=== PATIENT | female | born 1930 | race Caucasian/White ===

== ENCOUNTER 2016-11-14 14:50 | Inpatient (IN) ==
[2016-11-14] MEDS ORDERED: ZOFRAN IV ONE (15:42)
[2016-11-14] MEDS ORDERED: DILAUDID IV ONE (15:42)
[2016-11-14] MEDS ORDERED: NS 1,000 ML IV ONE (15:43)
--- NOTE | 2016-11-14 16:43 | Diag Imaging Result Doc PS360 ---
CHEST-1 VIEW - 11/14/2016 INDICATION: fx hip TECHNIQUE: COMPARISON: 02/23/2016 FINDINGS: There is borderline cardiomegaly and mild pulmonary vascular congestion. No focal infiltrates, pneumothorax, or pleural effusion. IMPRESSION: Nonspecific findings. Electronically signed by Darien Dumont 11/14/2016 4:41 PM
--- NOTE | 2016-11-14 16:50 | Diag Imaging Result Doc PS360 ---
HIP W/PELVIS BILAT 2 VIEWS - 11/14/2016 INDICATION: fall, right hip pain TECHNIQUE: Five views COMPARISON: CT from 08/01/2016 FINDINGS: There is a mildly displaced intertrochanteric fracture of the right proximal femur. No dislocation. The left hip appears intact. IMPRESSION: Intertrochanteric right proximal femur fracture. Electronically signed by Darien Dumont 11/14/2016 4:48 PM
[2016-11-14 17:13] LABS: MANUAL DIFF NEEDED? NO
[2016-11-14 17:24] LABS: BASO% 0.5 % (0.0-0.8); EOS# 0.32 X1000 (0.0-0.7); EOS% 3.3 % (0.0-10.0); HEMATOCRIT 35.1 % (37.0-47.0); HEMOGLOBIN 11.5 g/dL (12.0-16.0); IMM GRAN# 0.09 X1000 (0.0-0.04); IMM GRAN% 0.9 % (0.0-0.5); LYMPH# 1.78 X1000 (1.2-3.4); LYMPH% 18.3 % (20.5-51.1); MCH 29.3 PG (27-31); MCHC 32.8 g/dL (33-37); MCV 89.3 FL (81-99); MONO# 0.71 X1000 (0.11-0.59); MONO% 7.3 % (1.7-9.3); MPV 11.4 FL (7.4-10.4); NEUT% 69.7 % (42.2-75.2); PLT 222 X1000 (130-400); RBC 3.93 XMIL (4.2-5.4)
--- NOTE | 2016-11-14 17:25 | PROVIDER DOCUMENTATION ---
This chart was entered by Ari Hi Scribe, acting as scribe for Grupo Whitney MD. 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 Patient was unable to ambulate. Patient reports right pain, denies any other injury. Quality of Pain: reports: dull Severity in ED: moderate Onset/Duration: abrupt, just prior to arrival Timing: still present, intermittent Modifying Factors: worse with: movement Locality of Occurance: Home Similar Symptoms Previously?: No - FALL INJURY Location of Pain/Injury: reports: lower extremity (right hip) Pain Radiation: reports: no radiation Reason for Fall: reports: slipped, tripped Symptoms prior to fall:: reports: none Loss of Consciousness: no loss of consciousness Injury Associated Symptoms: reports: snap/crack/pop sensation, unable to bear weight, trouble walking. denies: back/neck pain, shortness of breath Review of Systems - Adult - REVIEW OF SYSTEMS - ADULT Constitutional: reports: no symptoms reported Eyes: reports: no symptoms reported Ears, Nose, Mouth & Throat: reports: no symptoms reported Cardiovascular: denies: chest pain, palpitations Respiratory: denies: dyspnea on exertion, shortness of breath Gastrointestinal: reports: no symptoms reported Genitourinary: reports: no symptoms reported Musculoskeletal: reports: joint pain. denies: back pain, neck pain Integumentary: reports: no symptoms reported Neurological: denies: dizziness/vertigo, headache/migraines, syncope Psychiatric: reports: no symptoms reported Endocrine: reports: no symptoms reported Hematologic/Lymphatic: reports: no symptoms reported Allergic/Immunologic: reports: no symptoms reported All Other Systems: Reviewed and Negative Past History - Adult - PAST MEDICAL HISTORY-ADULT Review of Records: reports: Old Records Reviewed, Nursing Assessment Review, Medications Reviewed Major Childhood Illnesses: reports: denies history Cardiovascular: reports: HTN, PVD (total SFA occlusion 10/22/13) Respiratory: reports: asthma, COPD Gastrointestinal: reports: other (perforated bowel) Endocrine/Immune: reports: thyroid disorder (hypothyroid) - PRIOR SURGERIES/PROCEDURES Surgical/Procedure History: reports: hysterectomy, hernia repair, bowel surgery , other, appendectomy, cholecystectomy, back/neck - IMMUNIZATION STATUS Childhood Immunizations: See Nurse Assessment Flu Vaccine: UTD - FAMILY HISTORY Family History: reviewed, not pertinent - SOCIAL HISTORY Smoking: quit greater than 1 year, cigarettes Living Situation: family Physical Exam-Injury Related - Physical Exam-Injury Related Initial Vital Signs Reviewed: Yes General Appearance: alert, mild distress, moderate distress Eyes: PERRL/EOMI, pink conjunctivae Head, Ears, Nose, Mouth & Throat: normocephalic/atraumatic, moist mucous membranes, normal ENT inspection Neck: full range of motion, normal inspection Respiratory: chest non-tender, lungs clear, normal breath sounds, no respiratory distress, no accessory muscle use Cardiovascular: regular rate, rhythm, no edema, no JVD Abdominal Exam: normal bowel sounds, non tender, soft, no organomegaly, no pulsatile mass Back Exam: no CVA tenderness, no vertebral tenderness Extremity: normal capillary refill, tenderness (right hip), other (right leg is shortened and externally rotated) Integumentary: normal color, warm/dry Neurologic: vice president research II-XII nml as tested, no motor/sensory deficits Psych/Mental Status: normal mood/affect, normal thought content, normal thought process, oriented x 3 - Glascow Coma Score Best Eye Response (Bharath): (4) open spontaneously Best Verbal Response ([place]): (5) oriented Best Motor Response ([place]): (6) obeys commands [place] Total: 15 Progress - PLAN OF CARE/RESULTS Progress/Plan/Lab Results: Vital Signs - 8 hr 11/14/16 15:22 Temperature 98.5 F Pulse Rate 72 Respiratory Rate 18 Blood Pressure 107/48 O2 Sat by Pulse Oximetry 96 Laboratory Results - last 24 hr 11/14/16 15:55 WBC 9.71 RBC 3.93 L Hgb 11.5 L Hct 35.1 L MCV 89.3 MCH 29.3 MCHC 32.8 L RDW Std Deviation 15.1 H Plt Count 222 MPV 11.4 H Immature Gran % (Auto) 0.9 H Neut % (Auto) 69.7 Lymph % (Auto) 18.3 L [place] % (Auto) 7.3 Eos % (Auto) 3.3 Baso % (Auto) 0.5 Immature Gran # (Auto) 0.09 H Neut # (Auto) 6.76 H Lymph # (Auto) 1.78 [place] # (Auto) 0.71 H Eos # (Auto) 0.32 Baso # (Auto) 0.05 Orders Category Date Time Status CHEST-1 VIEW [RAD] Stat Exams 11/14/16 16:23 Completed HIP W/PELVIS BILAT 2 VIEWS [RAD] Stat Exams 11/14/16 15:36 Completed CBC WITH ELECTRONIC DIFF [HEME] Stat Lab 11/14/16 15:55 Completed COMPREHENSIVE METABOLIC PANEL [CHEM] Stat Lab 11/14/16 15:55 Received PROTIME WITH INR [COAG] Stat Lab 11/14/16 15:55 Received PTT [COAG] Stat Lab 11/14/16 15:55 Received URINALYSIS-1 [URINALYSIS] Stat Lab 11/14/16 17:06 Uncollected 0.9% Sodium Chloride Inj [Ns] 1,000 ml Med 11/14/16 15:43 Discontinued IV 999 mls/hr Hydromorphone [Dilaudid] Med 11/14/16 15:42 Discontinued 2 mg IV NOW ONE Ondansetron [Zofran] Med 11/14/16 15:42 Discontinued 4 mg IV NOW ONE Transfer/Admit Order [TRANSFER] Routine Transfer 11/14/16 17:21 Ordered Result Diagrams: 11/14/16 15:55 - XRAY 1 XRAY: Right XRAY Study: Pelvis, Hip Impression: Abnormal XRAY Interpretation: intertrochanteric R proximal femur fracture - CONSULTS/PCP/HOSPITALIST Notification #1 *Consult/PCP/Hospitalist*: Time Discussed: 17:12 Reason/Comments: hip fx, will consult on patient upstairs #2 Consult: Time Discussed: 17:20 Reason/Comments: will placed in bridge orders Consult Disposition: Admit Departure - Departure Date of Disposition Decision: 11/14/16 Time of Disposition Decision: 17:20 DIAGNOSIS: Intertrochanteric fracture of right femur, Fall from standing Disposition: ADMITTED INPATIENT 09 Certified Medical Emergency: Emergent Condition: Stable Referrals and Follow-Ups: None,PCP [Primary Care Provider] - - Critical Care Note This patient required my direct & personal management of CC.: No Attestation - Physician/ ANALILIA Attestation The physician spent face to face time with patient:: Yes Advanced Practice Provider documentation review:: Supervising physician onsite and consulted in the evaluation and care of this patient. The physician did have a face to face encounter with the patient. This chart was documented by the indicated scribe, (Ari Hi, Scribe) and accurately reflects the services I performed and decisions made by me, Grupo Whitney MD, as attested by the provider's signature.
[2016-11-14 17:30] LABS: INR 0.98; PROTIME 10.3 Seconds (9.2-11.7); PTT 29.1 Seconds (22.0-36.0)
[2016-11-14 17:36] LABS: ALBUMIN 3.5 g/dL (3.5-5.0); CALCIUM 9.4 mg/dL (8.8-10.2); POTASSIUM 5.5 mmol/L (3.5-5.1); TOTAL BILIRUBIN 0.2 mg/dL (0.20-1.00); TOTAL PROTEIN 7.1 g/dL (6.3-8.3)
[2016-11-14 17:59] LABS: URINE MICRO REVIEW NEEDED? NO; URINE SOURCE CATH
[2016-11-14 18:14] LABS: BILIRUBIN URINE NEGATIVE (NEGATIVE); BLOOD URINE SMALL (NEGATIVE); COLOR STRAW; GLUCOSE URINE NEGATIVE (NEGATIVE); LEUKOCYTES URINE NEGATIVE (NEGATIVE); NITRITE URINE NEGATIVE (NEGATIVE); PROTEIN URINE TRACE mg/dL (NEGATIVE); SP GRAVITY URINE 1.006; TURBIDITY URINE CLEAR (CLEAR); UROBILINOGEN URINE NORMAL (NORMAL)
[2016-11-14 18:16] LABS: UR EPITHELIAL CELLS <10 /HPF (<10); URINE BACTERIA NEGATIVE /HPF; URINE RBC <10 /HPF (<10); URINE WBC <10 /HPF (<10)
[2016-11-14] MEDS ORDERED: DILAUDID IM PRN (18:23)
[2016-11-14] MEDS ORDERED: SODIUM CHLORIDE 0.9% INJ SCH (19:30)
[2016-11-14] MEDS: DUONEB (A & A) INH SCH ×2 (19:45→23:10)
[2016-11-14] MEDS ORDERED: SYNTHROID PO SCH (21:00)
[2016-11-14] MEDS: LOVENOX SUBQ SCH (21:52)
[2016-11-14] MEDS: XANAX PO SCH (21:52)
[2016-11-14] MEDS: NEURONTIN PO SCH (21:52)
[2016-11-14] MEDS: COLACE PO SCH (21:52)
[2016-11-14] MEDS: LOPRESSOR PO SCH (21:52)
[2016-11-14] MEDS: PROTONIX IV SCH (21:53)
[2016-11-14] MEDS ORDERED: ZOFRAN IV PRN (22:07)
[2016-11-14] MEDS ORDERED: NS 1,000 ML IV SCH (22:15)
--- NOTE | 2016-11-14 22:24 | HISTORY AND PHYSICAL ---
CHIEF COMPLAINT: History of fall, sustained to the right hip. HISTORY OF PRESENT ILLNESS: She is an 86-year-old white female patient of mine under hospice care with [facility], had a fall, sustained injury to the right hip. Right hip slightly shortened, not externally rotated. X-rays reviewed, right intertrochanteric fracture without significant displacement. May be some anterior displacement noted. Patient was admitted to the hospital with a right hip fracture. Dr. Foley has been consulted. She was also found to have mild azotemia, started on IV fluids. As a result, a hospital admission was warranted. PAST MEDICAL HISTORY: Intermittent atrial fibrillation. COPD. Chronic systolic heart failure with EF 30%. Depression. Type 2 diabetes. Hypertension. Hypothyroidism. Acid reflux disease. Peripheral vascular disease. Incisional hernia. PAST SURGICAL HISTORY: Hemorrhoidectomy. Cholecystectomy. Partial hysterectomy. Intracardiac stents. Right SFA atherectomy with angioplasty. Back surgery. Exploratory laparotomy for bowel obstruction with lysis of adhesion. Repair of bladder. Resection of partial small bowel. ALLERGIES: Reported to penicillin. Tetanus toxoid. SOCIAL HISTORY: . 6 children. Retired. Lives in [place]. Quit smoking in 2012. FAMILY HISTORY: Father of [place] at 63. Mom at 52 from cancer and diabetic complications. MEDICATIONS: Prilosec 20 daily. Losartan 50 daily. Aldactone 25 daily. Tramadol 100 at bedtime. Potassium 20 mg daily. Zanaflex 4 mg at bedtime. Eliquis 5 mg daily. Pletal 50 daily. Glipizide 5 mg p.o. b.i.d. Synthroid 50 mcg daily. Januvia 100 daily. Lipitor 40 daily. Lanoxin 125 mcg daily. Zofran 4 mg as needed. Metoprolol 25 daily. Pletal 100 daily. ALLERGIES: Penicillin. REVIEW OF SYSTEMS: HEENT: No headache. No vision problem. No earache. No sore throat. Neck: No goiter. No lymphadenopathy. No bruit. Cardiopulmonary: No chest pain, shortness of breath, PND, orthopnea. GI: Incisional hernia. No nausea, vomiting. : No history of hesitancy, frequency. Suh was placed. Musculoskeletal: Pain in the right hip. Neurologic: No focal symptoms or weakness. PHYSICAL EXAMINATION: VITAL SIGNS: Afebrile. 5 feet 2, 135 pounds. Vitals are stable. Input and output are negative, - 600. HEENT: Atraumatic, normocephalic. Pupils equal, react to light. Tympanic membranes are normal. Nose and throat within normal limits. NECK: Supple. No lymphadenopathy. No goiter. CHEST: Bilateral air entry. No rales, no wheezing. HEART: Sounds are regular. ABDOMEN: Belly is soft. Protuberant. Incisional hernia. Bowel sounds are present. MUSCULOSKELETAL: A lot of swelling in the right hip, shortened. NEUROLOGIC: No obvious neurological deficits. INVESTIGATIONS: CBC: White cell count 9.7, hematocrit 35, platelets 222,000. PT 10, INR 0.8. SMA7: Potassium 5.5, BUN 52, creatinine 2.2. Urinalysis is clear. X-ray of the right hip: Right intertrochanteric fracture with anterior displacement. Chest x-ray: Borderline cardiomegaly. Stable. ASSESSMENT AND PLAN: 1. An 86-year-old white female with above problems admitted to the hospital with right hip fracture. Plan is Orthopedics consult, pain control with Dilaudid. 2. Deep venous thrombosis and gastrointestinal prophylaxis with Lovenox and Protonix respectively. 3. Azotemia. IV fluids, half-normal saline, 80 mL/hour. Dr. Foley consult. Check the labs in the morning. Reconcile home medications. Discussed with the family and will follow up. cc: Nayan Jeffries MD
[2016-11-14] MEDS ORDERED: DILAUDID IV PRN (22:27)
[2016-11-14] MEDS: NARCAN ONE ×2 (23:30→23:33)
[2016-11-15] MEDS: ZOFRAN IV PRN ×4 (00:50→21:53)
[2016-11-15] MEDS: HUMALOG SUBQ SCH ×5 (02:42→21:42)
[2016-11-15 02:45] LABS: ALLEN TEST YES; BE -4.5 mmoll (-3.0-3.0); BLOOD TYPE ARTERIAL; DRAW SITE R RADIAL; METHB 0.9 % (0.0-1.5); O2(CT) 15.3 mL/dL (15.0-23.0); PCO2(98.6) 49 mmHg (35-45); PO2(98.6) 89 mmHg (60-100); SAMPLE BLOOD; SAO2 98.3 % (95.0-100.0); THB 11.3 g/dL (11.5-17.4); pH(98.6) 7.27 (7.35-7.45)
[2016-11-15 02:47] LABS: MODALITY NRB
[2016-11-15] MEDS: DUONEB (A & A) INH SCH ×6 (02:50→23:30)
[2016-11-15] MEDS: DILAUDID IV PRN ×4 (05:10→21:57)
[2016-11-15] MEDS: SYNTHROID PO SCH (06:16)
[2016-11-15 07:43] LABS: MANUAL DIFF NEEDED? NO
[2016-11-15 07:55] LABS: BASO% 0.1 % (0.0-0.8); EOS# 0.01 X1000 (0.0-0.7); EOS% 0.1 % (0.0-10.0); HEMATOCRIT 35.2 % (37.0-47.0); HEMOGLOBIN 11.3 g/dL (12.0-16.0); IMM GRAN# 0.04 X1000 (0.0-0.04); IMM GRAN% 0.3 % (0.0-0.5); LYMPH# 1.44 X1000 (1.2-3.4); MCH 28.9 PG (27-31); MCHC 32.1 g/dL (33-37); MONO# 1.32 X1000 (0.11-0.59); MONO% 8.3 % (1.7-9.3); MPV 10.8 FL (7.4-10.4); NEUT% 82.2 % (42.2-75.2); PLT 226 X1000 (130-400); RBC 3.91 XMIL (4.2-5.4)
[2016-11-15 08:29] LABS: ALBUMIN 3.5 g/dL (3.5-5.0); CALCIUM 9.2 mg/dL (8.8-10.2); TOTAL BILIRUBIN 0.28 mg/dL (0.20-1.00); TOTAL PROTEIN 6.9 g/dL (6.3-8.3)
--- NOTE | 2016-11-15 08:38 | CONSULTATION ---
DATE OF CONSULTATION: 11/15/2016 CHIEF COMPLAINT: Right hip pain. HISTORY OF PRESENT ILLNESS: Mr. Lambert is an 86-year-old female who presented to the emergency department yesterday for evaluation after a fall. She fell in her shower. Was taken to the ER and was found to have a hip fracture. She was admitted per Dr. Jeffries. Most of her pain is in the right hip. It is worse if she moves it. It does feel better when she lies still. Unfortunately, last night, they had given her some Dilaudid and she has some breathing complications. They had to Narcan her and call a cat call on her. She is on a nonrebreather. Her saturations have been in the 80s and 90s on a nonrebreather. PAST MEDICAL HISTORY: Atrial fibrillation, COPD, heart failure, type 2 diabetes, hypertension, hypothyroidism, reflux, peripheral vascular disease. PAST SURGICAL HISTORY: Cholecystectomy, partial hysterectomy, cardiac stenting. She has had an exploratory laparotomy for a bowel obstruction with a partial resection of the small bowel. ALLERGIES: Penicillin and tetanus. SOCIAL HISTORY: She is a . She has 6 children. She lives in [place]. She has been living by herself and she mainly uses a cane when she walks. MEDICATIONS: Per the medical record. REVIEW OF SYSTEMS: Positive for this right hip pain. All other systems are essentially negative and per the HPI. PHYSICAL EXAMINATION: General: She has a little bit labored breathing and a little bit of distress on a nonrebreather but she is alert, and she answers questions and follows commands. Head and Neck: I do not see any signs of trauma. Respirations are a little bit labored with a nonrebreather on. Cardiovascular: She has a regular rate, femoral pulse. Abdomen: She has a hernia present but is nontender. Extremity Examination: Right lower extremity, she has tenderness to palpation at the right hip and no tenderness to palpation at the knee or ankle. She has good sensation to light touch to the foot and 2+ DP pulse. RADIOGRAPHS: Radiograph of the right hip shows an intertrochanteric fracture with some displacement. ASSESSMENT: Right hip intertrochanteric fracture. PLAN: I discussed with Ms. Lambert and her family today about surgical intervention which is what I would recommend. If anesthesia is okay with doing it today, if we can get by with a spinal, then we will plan on intertrochanteric femoral nail for this right hip fracture today. I went over with her and her family the procedure, risks, benefits, and potential complications of the procedure. Risks include, but are not limited to, infection, wound healing problems, damage to nerves, arteries, veins, numbness, malunion, nonunion, hardware related issues, continued pain, DVT, and anesthesia related risks. After discussing these with the patient and the family, they all expressed understanding and wished to proceed so we will plan on getting this done today. She will be NPO. cc: MD Nayan Leal MD
--- NOTE | 2016-11-15 08:43 | PROGRESS NOTE ---
DATE: 11/15/2016 SUBJECTIVE: The patient had CAT team call last night. Oxygen level went down on the non- rebreather. Family was there at bedside. The patient was seen by Dr. Foley. REVIEW OF SYSTEMS: None reported. PHYSICAL EXAMINATION: Vital Signs: Low-grade fever. Vitals are stable. HEENT : Within normal limits. Neck: Supple. No lymphadenopathy. Chest: Clear to auscultation. Heart: Heart sounds are regular. Abdomen: Belly is soft, nontender. Good bowel sounds. Extremities: Right leg is slightly shortened. Neurologic: No obvious neurological deficits. INVESTIGATIONS: CBC: White cell count 15, hematocrit 35, platelets 226,000. ABG: PH is 7.27, pCO2 of 49, PO2 of 89. SMA-7 is pending. ASSESSMENT AND PLAN: 1. Right hip fracture. Waiting for nailing. 2. Hypoxemia due to oversedation. Will cut down the oxygen. 3. Paroxysmal atrial fibrillation, stable. The patient will be moderate risk for complications. 4. Azotemia, on intravenous fluids. In light of high risk for infection, will start on Levaquin. Discussed the plan of care with the family. LEVEL OF DOCUMENTATION: 25 minutes. cc: Nayan Jeffries MD MTDD
[2016-11-15] MEDS ORDERED: KAYEXALATE PO ONE ×2 (08:57→16:00)
[2016-11-15] MEDS ORDERED: CALCIUM GLUCONATE 1 GM in NS 50 ML IV ONE (08:57)
[2016-11-15] MEDS: NS 1,000 ML IV SCH ×2 (09:03→16:30)
[2016-11-15] MEDS ORDERED: KAYEXALATE PR ONE (11:15)
[2016-11-15] MEDS: LEVAQUIN 250 MG/D5W 250 MG/50 ML IVPB IV SCH (11:24)
[2016-11-15 14:44] LABS: POTASSIUM 6.4 mmol/L (3.5-5.1)
[2016-11-15] MEDS: COLACE PO SCH ×2 (16:52→21:44)
[2016-11-15] MEDS: NEURONTIN PO SCH ×2 (16:53→21:42)
[2016-11-15] MEDS: XANAX PO SCH ×2 (16:53→21:53)
[2016-11-15] MEDS: MIRALAX PO SCH (16:54)
[2016-11-15] MEDS: LANOXIN PO SCH (16:54)
[2016-11-15] MEDS: LOPRESSOR PO SCH ×2 (16:54→21:44)
[2016-11-15 18:25] LABS: CALCIUM 8.7 mg/dL (8.8-10.2); POTASSIUM 5.7 mmol/L (3.5-5.1)
[2016-11-15] MEDS: LOVENOX SUBQ SCH (18:57)
[2016-11-15] MEDS: PROTONIX IV SCH (21:42)
[2016-11-15] MEDS: LIPITOR PO SCH (21:42)
[2016-11-16] MEDS: TYLENOL PR PRN (00:02)
[2016-11-16] MEDS: NS 1,000 ML IV SCH ×4 (00:09→23:41)
[2016-11-16] MEDS: DUONEB (A & A) INH SCH ×7 (03:00→23:32)
[2016-11-16] MEDS: ZOFRAN IV PRN (03:59)
[2016-11-16] MEDS: DILAUDID IV PRN ×6 (03:59→23:38)
[2016-11-16] MEDS: HUMALOG SUBQ SCH ×4 (06:15→22:20)
[2016-11-16] MEDS: SYNTHROID PO SCH (06:16)
[2016-11-16 07:02] LABS: BASO% 0.2 % (0.0-0.8); EOS# 0.22 X1000 (0.0-0.7); EOS% 1.6 % (0.0-10.0); HEMATOCRIT 32.8 % (37.0-47.0); HEMOGLOBIN 10.2 g/dL (12.0-16.0); IMM GRAN# 0.05 X1000 (0.0-0.04); IMM GRAN% 0.4 % (0.0-0.5); LYMPH# 0.98 X1000 (1.2-3.4); LYMPH% 7.1 % (20.5-51.1); MANUAL DIFF NEEDED? YES; MCH 28.4 PG (27-31); MCHC 31.1 g/dL (33-37); MCV 91.4 FL (81-99); MONO# 1.06 X1000 (0.11-0.59); MONO% 7.7 % (1.7-9.3); PLT 186 X1000 (130-400); RBC 3.59 XMIL (4.2-5.4)
[2016-11-16 07:20] LABS: CALCIUM 8.2 mg/dL (8.8-10.2); POTASSIUM 5.3 mmol/L (3.5-5.1)
[2016-11-16 07:38] LABS: BANDS 4 % (0-1); LYMPHS 14 % (21-51); MONO 8 % (1-9)
--- NOTE | 2016-11-16 08:21 | PROGRESS NOTE ---
DATE: 11/16/2016 SUBJECTIVE: Ms. Lambert is lying in bed this morning. She is just on nasal cannula this morning, and feeling okay. OBJECTIVE: Right lower extremity exam: strapping machine tender to palpation around the hip. She can still move the toes well. She has good sensation to light touch to the toes and 2+ DP pulse. ASSESSMENT: Right intertrochanteric hip fracture. PLAN: I discussed with Dr. Jeffries this morning about her case, and he would like to wait another day before we proceed with surgical intervention for her secondary to her creatinine still being high, and her BUN as well. Her potassium has come down quite nicely, from 7 down to 5.3 this morning, so we will let her have regular diet today, and she will be n.p.o. after midnight tonight just in case we can get everything done tomorrow. cc: MD Nayan Leal MD
--- NOTE | 2016-11-16 08:57 | Diag Imaging Result Doc PS360 ---
EXAM: CHEST-1 VIEW INDICATION: SOB TECHNIQUE: One view COMPARISON: 11/14/2016 FINDINGS: There is increased opacity at the left lower lung zone suggesting possible mild developing infiltrate. Consider follow-up with a PA and lateral radiograph of the chest. There is no discrete pleural fluid collection or pneumothorax. The cardiomediastinal silhouette and central vasculature are grossly unremarkable. IMPRESSION: Increasing density in the left lower lung as described. Electronically signed by Gómez Nash 11/16/2016 8:55 AM
--- NOTE | 2016-11-16 09:03 | PROGRESS NOTE ---
DATE: 11/16/2016 SUBJECTIVE: Interval history since yesterday: Right hip surgery was canceled due to unstable medical problems. Potassium came back 7.0, worsening of the renal failure. The patient is also nauseated. For the last 24 hours, the patient was given IV calcium gluconate followed by Kayexalate by mouth as well as anemia. She was given Zofran for nausea. She is also requiring high oxygen. REVIEW OF SYSTEMS: Right hip pain. No shortness of breath. No GI symptoms. The patient has a catheter present. OBJECTIVE: Vital Signs: On examination fever 100.2, tachycardic. Blood pressure is 108/49 6 L nasal cannula 92%. I's and O's are positive 1.78 L. HEENT: Exam within normal limits. Chest: Bilateral air entry. Heart: Sounds are very tachycardic. Abdomen: Belly is soft. Ventral hernia present. Suh catheter was seen. Extremities: Right hip was externally rotated, shortened. INVESTIGATIONS: CBC: White cell count 13, hematocrit 32, platelet 186. SMA 7: Sodium 139, potassium 5.3, chloride 105, BUN 60, creatinine 3.4, glucose 119.9. Chest x-ray stable. ASSESSMENT AND PLAN: 1. Hyperkalemia due to worsening of kidney function tests. Calcium gluconate followed by Kayexalate is improving. 2. Acute kidney injury with worsening, probably intravascular volume depletion. Increase intravenous fluids 135 an hour and follow up on SMA 7. 3. Right hip fracture. Will stabilize before the nailing. 4. Fever and elevated white cell count. Intravenous antibiotics with Levaquin 250 mg once daily. 5. Deep venous thrombosis prophylaxis with Lovenox. 6. Paroxysmal atrial fibrillation on digoxin. 7. Living Will discussed with family. Made her do not resuscitate. Hopefully she will be stabilized by tomorrow. Discussed plan of care with the family along with orthopedic surgeon, Dr. Foley. LEVEL OF DOCUMENTATION: 35 minutes. cc: Nayan Jeffries MD
[2016-11-16] MEDS: LEVAQUIN 250 MG/D5W 250 MG/50 ML IVPB IV SCH (12:24)
[2016-11-16] MEDS: COLACE PO SCH ×2 (14:17→22:19)
[2016-11-16] MEDS: LOPRESSOR PO SCH ×2 (14:19→22:20)
[2016-11-16] MEDS: LANOXIN PO SCH (14:19)
[2016-11-16] MEDS: MIRALAX PO SCH (14:19)
[2016-11-16] MEDS: NEURONTIN PO SCH ×2 (14:19→22:09)
[2016-11-16] MEDS: XANAX PO SCH ×2 (14:20→22:09)
[2016-11-16] MEDS: LOVENOX SUBQ SCH (22:19)
[2016-11-16] MEDS: PROTONIX IV SCH (22:20)
[2016-11-16] MEDS: LIPITOR PO SCH (22:20)
[2016-11-17] MEDS: DILAUDID IV PRN ×4 (02:45→18:44)
[2016-11-17] MEDS: DUONEB (A & A) INH SCH ×2 (03:40→08:35)
[2016-11-17 04:16] LABS: ALLEN TEST YES; BE -4.6 mmoll (-3.0-3.0); BLOOD TYPE ARTERIAL; DRAW SITE R RADIAL; METHB 0.8 % (0.0-1.5); MODALITY VENTIMASK; O2(CT) 12.3 mL/dL (15.0-23.0); PCO2(98.6) 36 mmHg (35-45); PO2(98.6) 82 mmHg (60-100); SAMPLE BLOOD; SAO2 96.9 % (95.0-100.0); THB 9.1 g/dL (11.5-17.4); pH(98.6) 7.36 (7.35-7.45)
[2016-11-17] MEDS: HUMALOG SUBQ SCH ×3 (06:38→18:12)
[2016-11-17] MEDS: SYNTHROID PO SCH (06:39)
[2016-11-17 06:48] LABS: MANUAL DIFF NEEDED? NO
[2016-11-17 06:59] LABS: BASO% 0.3 % (0.0-0.8); EOS# 0.08 X1000 (0.0-0.7); EOS% 0.5 % (0.0-10.0); HEMATOCRIT 28.9 % (37.0-47.0); HEMOGLOBIN 8.9 g/dL (12.0-16.0); IMM GRAN# 0.05 X1000 (0.0-0.04); IMM GRAN% 0.3 % (0.0-0.5); LYMPH# 1.37 X1000 (1.2-3.4); LYMPH% 9.3 % (20.5-51.1); MCH 28.5 PG (27-31); MCHC 30.8 g/dL (33-37); MCV 92.6 FL (81-99); MONO# 1.23 X1000 (0.11-0.59); MONO% 8.4 % (1.7-9.3); MPV 10.5 FL (7.4-10.4); NEUT% 81.2 % (42.2-75.2); PLT 176 X1000 (130-400); RBC 3.12 XMIL (4.2-5.4)
[2016-11-17 07:17] LABS: CALCIUM 8.5 mg/dL (8.8-10.2); POTASSIUM 4.8 mmol/L (3.5-5.1)
[2016-11-17] MEDS: LEVAQUIN 250 MG/D5W 250 MG/50 ML IVPB IV SCH (07:54)
[2016-11-17] MEDS ORDERED: LASIX IV ONE (08:07)
--- NOTE | 2016-11-17 08:14 | PROGRESS NOTE ---
DATE: 11/17/2016 SUBJECTIVE DATA: Ms. Lambert is lying in the bed this morning. She is on a Ventimask. She states she is not feeling well. She is also having a lot of pain with this hip. OBJECTIVE: On right lower extremity exam, distillation operator to palpation around the hip. She can still move the toes well. She does have good sensation to light touch to the toes. She has a 2+ pedal pulse. ASSESSMENT: Right intertrochanteric hip fracture. PLAN: We would like to get Ms. Lambert on the schedule today for her TFN. Her creatinine has started trending down. It is down to 2.3 this morning from 3.4 yesterday. Her potassium is 5.4. We have made her n.p.o. and again, we are going to work on getting her on the schedule for today. Dictated by YOHANNES Win for Ezequiel Foley MD cc: YOHANNES Win MD Jagan Reddy, MD
[2016-11-17] MEDS: NS 1,000 ML IV SCH (08:24)
[2016-11-17] MEDS: LOPRESSOR PO SCH ×3 (08:28→21:15)
[2016-11-17] MEDS: MIRALAX PO SCH (08:29)
--- NOTE | 2016-11-17 08:43 | Diag Imaging Result Doc PS360 ---
EXAM: CHEST-PORTABLE HISTORY: low oxygen saturation TECHNIQUE: AP portable at 0820 COMMENT: There is some increase in alveolar opacity in the left lower lobe since the previous study of 11/16/2016. Otherwise has been no significant change. IMPRESSION: Slightly worsened left lower lobe pneumonia. Electronically signed by Elie Dominguez 11/17/2016 8:41 AM
[2016-11-17] MEDS: COLACE PO SCH ×2 (10:00→21:15)
[2016-11-17] MEDS: XANAX PO SCH ×2 (10:01→20:21)
[2016-11-17] MEDS: NEURONTIN PO SCH (10:01)
[2016-11-17] MEDS: LANOXIN PO SCH (10:04)
[2016-11-17] MEDS ORDERED: NS NEB INH SCH (11:00)
[2016-11-17] MEDS: TYLENOL PR PRN (11:11)
[2016-11-17] MEDS: XOPENEX NEB INH SCH ×4 (11:32→23:40)
[2016-11-17] MEDS ORDERED: DOPAMINE 400 MG/D5W 400 MG/500 ML IV.SOLN IV SCH (13:57)
[2016-11-17] MEDS ORDERED: CARDIZEM 100 MG/NS 100 MG/100 ML IVPB IV SCH (13:57)
[2016-11-17] MEDS ORDERED: DILAUDID IV PRN (14:49)
[2016-11-17] MEDS ORDERED: DILAUDID IM PRN (16:03)
--- NOTE | 2016-11-17 16:13 | EKG Report ---
Test Performed on : 11/17/2016 1:26:05 PM Test Reason : Increased HR Blood Pressure : / mmHG Vent. Rate : 142 BPM Atrial Rate : 141 BPM P-R Int : 000 ms QRS Dur : 068 ms QT Int : 262 ms P-R-T Axes : 000 -49 044 degrees QTc Int : 403 ms Sinus tachycardia. - incresased precordial lead gain with P wave suggested in V5 Low voltage QRS Left anterior fascicular block Inferior infarct , age undetermined Cannot rule out Anterior infarct , age undetermined Abnormal ECG When compared with ECG of 17-FEB-2016 07:11, No significant change was found Confirmed by Kelvin Emery DO ([id number]) on 11/20/2016 8:36:10 AM
[2016-11-17] MEDS: CLINDAMYCIN 300 MG in NS 50 ML IV SCH (17:03)
--- NOTE | 2016-11-17 20:43 | PROGRESS NOTE ---
DATE: 11/17/2016 SUBJECTIVE: Patient is not doing very well. She is getting work of breathing, decreased pulse ox on 100%, obtunded. REVIEW OF SYSTEMS: Not able to obtain. EXAMINATION: She is tachycardic, tachypneic, 100%.Chest: Coarse rhonchi on the left lung. Heart: Tachycardic. Abdomen: Belly is soft, nontender. Good bowel sounds. Extremities: No peripheral edema. INVESTIGATIONS: Chest x-ray: Left lower lobe infiltrate. EKG: Supraventricular tachycardia. CBC: White cell count 14, hematocrit 29, platelets 176,000. ABG pH is 7.36 pCO2 36, PO2 82. SMA- 7: Sodium 145, potassium 5.8, chloride 110, BUN 46, creatinine 2.3. ASSESSMENT AND PLAN: 1. Right hip fracture. Not a candidate for surgery at this time. Medically unstable. 2. Left lower lobe pneumonia. Continue IV antibiotics with Levaquin. Added clindamycin. 3. Acute kidney injury, improving. 4. Hyperkalemia, better. 5. Supraventricular tachycardia, with low blood pressure. Decreased IV fluids to 80 an hour. Transfer to the [facility], with vasopressors. 6. Living will, DNR. 7. Discussed with Dr. Salmeron and Dr. Foley. She is unstable to undergo for surgery. Discussed with the family about the status at this time. We will monitor day-by-day, and transfer to step-down for better nursing care. LEVEL OF DOCUMENTATION: 35 minutes. cc: Nayan Jeffries MD
[2016-11-17] MEDS: LOVENOX SUBQ SCH (21:00)
[2016-11-17] MEDS: LIPITOR PO SCH (21:15)
[2016-11-17] MEDS: ZOFRAN IV PRN (22:54)
[2016-11-18] MEDS: HUMALOG SUBQ SCH ×5 (00:05→21:02)
[2016-11-18] MEDS: NEURONTIN PO SCH ×3 (00:05→21:00)
[2016-11-18] MEDS: CLINDAMYCIN 300 MG in NS 50 ML IV SCH ×4 (00:10→23:31)
[2016-11-18] MEDS: NS 1,000 ML IV SCH ×3 (00:11→23:56)
[2016-11-18] MEDS: PROTONIX IV SCH ×2 (00:12→23:31)
[2016-11-18] MEDS: DILAUDID IV PRN ×7 (02:30→23:57)
[2016-11-18] MEDS: XOPENEX NEB INH SCH ×6 (03:23→23:00)
[2016-11-18] MEDS: SYNTHROID PO SCH ×2 (06:20→09:33)
--- NOTE | 2016-11-18 08:31 | PROGRESS NOTE ---
DATE: 11/18/2016 SUBJECTIVE DATA: Ms. Lambert is lying in bed this morning. She is a little lethargic. She does awake to stimuli but she is not communicating much. She does not appear to be in any pain at the present. OBJECTIVE: Right lower extremity exam, there was some difficulty performing the exam, as patient was unable to follow commands or answer questions. She does still seem to have some tenderness to palpation around the hip. She has good color to the feet. They are warm. He has a 2+ pedal pulse. She is able to move the toes. ASSESSMENT: Right intertrochanteric hip fracture. PLAN: There is no new lab work available to me at this time. We did delay surgery yesterday because of her poor health status. Anesthesia was not comfortable with doing surgery yesterday. Her nurse this morning told me she thought that we were doing comfort measures only as well. I did not find any evidence of this in the chart. We will wait for Dr. Jeffries and anesthesia to decide when the patient would be ready to undergo surgery. Her vital signs are more stable this morning, and she is down to a nasal cannula. After talking with the family, it does seem that they would still like to do surgery if that becomes possible. Dictated by YOHANNES Win for Ezequiel Foley MD cc: YOHANNES Win MD Jagan Reddy, MD MTDD
[2016-11-18] MEDS: LOPRESSOR PO SCH ×2 (09:33→21:00)
[2016-11-18] MEDS: XANAX PO SCH ×2 (09:33→21:00)
[2016-11-18] MEDS: LEVAQUIN 250 MG/D5W 250 MG/50 ML IVPB IV SCH (09:33)
[2016-11-18] MEDS: LANOXIN PO SCH (09:33)
[2016-11-18] MEDS: COLACE PO SCH ×2 (09:33→21:00)
[2016-11-18] MEDS: MIRALAX PO SCH (09:33)
[2016-11-18] MEDS ORDERED: NS 250 ML ONE (10:02)
[2016-11-18 11:47] LABS: INR 0.99; PROTIME 10.4 Seconds (9.2-11.7)
[2016-11-18] MEDS: LIPITOR PO SCH (20:59)
[2016-11-18] MEDS: LOVENOX SUBQ SCH (21:00)
--- NOTE | 2016-11-18 21:22 | PROGRESS NOTE ---
DATE: 11/18/2016 SUBJECTIVE: In the last 24 hours events were noted. The patient was very sick and transfer to [facility]. She was not taking oxygen. She was very restless, agitated. Surgery has been canceled by anesthesiologist. She is too sick to go for repair of right hip. She was re- evaluated in [facility] this morning. The patient has been off non-rebreather. She is more comfortable , awake. She is responding very well. REVIEW OF SYSTEMS: Pain is decreased. No agitation. Very comfortable. Family was at bedside. Poor IV access. PHYSICAL EXAMINATION: Vital Signs: Afebrile. Vital signs are stable. 6 L of nasal cannula 91%. HEENT Examination: Within normal limits. Decreased rhonchi on the left side. Heart: Sounds are very distant. Abdomen: Belly is soft, nontender. Right hip: Swollen. INVESTIGATIONS: Pending and unable to get an access. CBC: White cell count 14 , hematocrit 38, platelet 176,000. PT/INR is normal. SMA 7, sodium 145, potassium 4.8, BUN 46, creatinine 2.3. Chest x-ray with stable infiltrate. ASSESSMENT AND PLAN: 1. Poor IV access. We will get a PICC line. 2. Left lower lobe pneumonia. Continue on clindamycin and Levaquin. 3. Paroxysmal atrial fibrillation. Control heart rate with Lanoxin. 4. Right hip fracture. Waiting for replacement. 5. Deep vein thrombosis prophylaxis with Lovenox. 6. Hyperkalemia/azotemia improving. Continue IV fluids. 7. Gastrointestinal prophylaxis with IV Protonix. 8. Plan of care discussed with the family. Continue present medical therapy. Pain control with Dilaudid. Agitation with Ativan. We will place PICC line for IV access Clear liquid diet. Living Will, DNR. LEVEL OF DOCUMENTATION: 25 minutes. cc: Nayan Jeffries MD MTDD
[2016-11-19] MEDS: NS 1,000 ML IV SCH ×2 (00:10→14:00)
[2016-11-19] MEDS: XOPENEX NEB INH SCH ×6 (02:35→23:25)
[2016-11-19] MEDS: DILAUDID IV PRN ×4 (03:48→21:30)
[2016-11-19 05:18] LABS: MANUAL DIFF NEEDED? NO
[2016-11-19 05:22] LABS: BASO% 0.3 % (0.0-0.8); EOS# 0.15 X1000 (0.0-0.7); EOS% 1.6 % (0.0-10.0); HEMATOCRIT 28.7 % (37.0-47.0); HEMOGLOBIN 8.7 g/dL (12.0-16.0); IMM GRAN# 0.05 X1000 (0.0-0.04); IMM GRAN% 0.5 % (0.0-0.5); LYMPH# 0.99 X1000 (1.2-3.4); LYMPH% 10.2 % (20.5-51.1); MCH 28.7 PG (27-31); MCHC 30.3 g/dL (33-37); MCV 94.7 FL (81-99); MONO# 0.78 X1000 (0.11-0.59); MONO% 8.1 % (1.7-9.3); MPV 10.6 FL (7.4-10.4); NEUT% 79.3 % (42.2-75.2); PLT 215 X1000 (130-400); RBC 3.03 XMIL (4.2-5.4)
[2016-11-19 05:44] LABS: CALCIUM 8.4 mg/dL (8.8-10.2); POTASSIUM 4.3 mmol/L (3.5-5.1)
[2016-11-19] MEDS: HUMALOG SUBQ SCH ×4 (06:31→21:30)
[2016-11-19] MEDS: SYNTHROID PO SCH (06:32)
--- NOTE | 2016-11-19 07:58 | PROGRESS NOTE ---
DATE: 11/19/2016 SUBJECTIVE: Ms. Lambert is an 86-year-old female patient, admitted with fall and right hip fracture. The patient is doing fair. The patient was on hospice. The patient does have multiple medical problems. Complaining of pain in the right hip, at times, shortness of breath. Mild nausea. Oral intake is fair to poor. The patient is very vague and poor historian. Her Admission History, Physical and Orthopedic Consult reviewed. The patient denied any chest pain or palpitations. Complaining of epigastric discomfort. The patient does have Suh catheter. PAST MEDICAL HISTORY: Significant for paroxysmal atrial fibrillation, COPD, congestive heart failure with ejection fraction of 30%, NIDDM, hypertension, hypothyroidism, gastroesophageal reflux disease, peripheral vascular disease, incisional hernia. OBJECTIVE: Vital Signs: Her vital signs noted. Neck: Supple. No JVD. Lungs: Bibasilar crepitations. Heart: S1 and S2, irregularly irregular. Abdomen: Soft, globular. The patient does have an incisional hernia. Extremities: No cyanosis, clubbing. Minimal swelling. Tenderness right hip. PET CARE WORKER: Alert, awake, answering question fair. Uncooperative for detailed exam. LAB DATA: Done today, hemoglobin 8.7, hematocrit 28.7, WBC count 9.66, platelet count 215,000. Electrolytes: BUN 47, creatinine 1.6, sodium 151. CONSIDERATION: The patient's problem is multifactorial. Patient does have: 1. Chronic systolic heart failure, 2. Acute kidney injury. 3. Paroxysmal atrial fibrillation. 4. Right hip fracture. 5. Ehz-dhgztlo-bccgwbqro diabetes mellitus. 6. Peripheral vascular disease status post angioplasty. 7. Hypothyroidism. 8. Gastritis and reflux disease. PLAN: Her renal function is improving. Labs and medication noted. The patient is waiting for surgery on her right hip. We will continue current treatment and close observation. cc: MD Nayan Han MD
--- NOTE | 2016-11-19 08:21 | Diag Imaging Result Doc PS360 ---
EXAM: CHEST-1 VIEW INDICATION: SOB TECHNIQUE: One view COMPARISON: 11/17/2016 FINDINGS: The vague left lower lung zone opacity appears to have decreased in prominence during the interval. No new consolidation is identified. There has been interval placement of a right PICC line with the tip projecting of the lower SVC in the expected position. There is no evidence of pneumothorax. Cardiac silhouette is stable. IMPRESSION: Slight improvement on the left as described. Electronically signed by Gómez Nash 11/19/2016 8:18 AM
[2016-11-19] MEDS: MIRALAX PO SCH (09:13)
[2016-11-19] MEDS: LEVAQUIN 250 MG/D5W 250 MG/50 ML IVPB IV SCH (09:14)
[2016-11-19] MEDS: NEURONTIN PO SCH ×2 (09:14→21:33)
[2016-11-19] MEDS: LANOXIN PO SCH (09:14)
[2016-11-19] MEDS: XANAX PO SCH ×2 (09:14→23:35)
[2016-11-19] MEDS: LOPRESSOR PO SCH ×2 (09:14→21:33)
[2016-11-19] MEDS: COLACE PO SCH ×2 (09:15→21:34)
[2016-11-19] MEDS: CLINDAMYCIN 300 MG in NS 50 ML IV SCH ×2 (09:32→17:05)
--- NOTE | 2016-11-19 10:05 | PROGRESS NOTE ---
DATE: 11/19/2016 SUBJECTIVE: Ms. Lambert is lying in bed this morning complaining of right hip pain. She rested actually fairly well throughout the night per the nursing staff. She is up in [facility] and she was placed up there on . She seems to be improving medically. OBJECTIVE: Right lower extremity exam: cube machine tender to palpation over that right hip. That right leg is a little bit externally rotated, just a little bit short. She is still able to dorsiflex, plantar flex the toes and ankle. She has good sensation to light touch to the toes and 2+ DP pulse. ASSESSMENT: Right intertrochanteric hip fracture. PLAN: We have been back and forth on when would be the best time to fix Ms. Lambert. Initially her potassium was so elevated that we had to cancel the case and then here recently her pulmonary function was so poor that anesthesia recommended that we hold off the case as well. She seems to be improving some. I called Dr. Taylor this morning and both agreed that we will shoot for fixing the hip this Monday, let her to continue to resuscitate over the weekend. She will continue to improve over the weekend and then she will be n.p.o. after midnight Monday night. Will plan on trochanteric femoral nailing Monday. cc: MD Nayan Leal MD
[2016-11-19] MEDS: LOVENOX SUBQ SCH (21:30)
[2016-11-19] MEDS: LIPITOR PO SCH (21:34)
[2016-11-20] MEDS: PROTONIX IV SCH ×2 (00:27→23:25)
[2016-11-20] MEDS: CLINDAMYCIN 300 MG in NS 50 ML IV SCH ×4 (00:28→23:25)
[2016-11-20] MEDS: XOPENEX NEB INH SCH ×6 (03:40→22:50)
[2016-11-20] MEDS: NS 1,000 ML IV SCH (04:15)
[2016-11-20] MEDS: SYNTHROID PO SCH (06:12)
[2016-11-20] MEDS: DILAUDID IV PRN ×4 (06:40→20:49)
[2016-11-20] MEDS: HUMALOG SUBQ SCH ×4 (06:43→20:52)
[2016-11-20] MEDS: LEVAQUIN 250 MG/D5W 250 MG/50 ML IVPB IV SCH (08:51)
[2016-11-20] MEDS: LOPRESSOR PO SCH ×2 (08:51→20:51)
[2016-11-20] MEDS: LANOXIN PO SCH (08:51)
[2016-11-20] MEDS: COLACE PO SCH ×2 (08:51→20:51)
[2016-11-20] MEDS: NEURONTIN PO SCH ×2 (08:51→20:51)
[2016-11-20] MEDS: MIRALAX PO SCH (08:51)
[2016-11-20] MEDS: XANAX PO SCH ×2 (08:51→20:51)
[2016-11-20] MEDS ORDERED: LASIX IV ONE (09:56)
[2016-11-20 10:32] LABS: MANUAL DIFF NEEDED? NO
[2016-11-20 10:49] LABS: ALBUMIN 2.7 g/dL (3.5-5.0); CALCIUM 8.6 mg/dL (8.8-10.2); POTASSIUM 3.9 mmol/L (3.5-5.1); TOTAL BILIRUBIN 0.86 mg/dL (0.20-1.00); TOTAL PROTEIN 5.8 g/dL (6.3-8.3)
--- NOTE | 2016-11-20 11:04 | PROGRESS NOTE ---
DATE: 11/20/2016 SUBJECTIVE: Ms. Lambert is doing fair. The patient does have increasing confusion, disorientation. At times, restlessness. No high-grade fever or chills. The patient is requiring higher dose of oxygen. The patient is not able to give good history. She had low-grade fever at 99.8. Some pain in the right hip. No nausea or vomiting. No diarrhea. PHYSICAL EXAMINATION: Vital Signs: Her vital signs noted. Neck: Supple. No JVD. Lungs: Bibasilar crepitations. Heart: S1 and S2 heard. A 2/6 systolic murmur at the apex. Abdomen: Soft, globular. The patient does have ventral hernia and incisional hernia. MANGA ARTIST: Alert, awake, able to move all 4 limbs. The patient's movement of the right leg is causing pain in the hip. LAB DATA: Done yesterday, noted. ASSESSMENT: 1. The patient has a right hip fracture. She is very high risk for intraoperative and postoperative complication, and complication of anesthesia. 2. She does have congestive heart failure. Ejection fraction was 30%. 3. Acute on chronic kidney disease. 4. Possible pneumonia. 5. Urinary tract infection. The patient is on broad-spectrum antibiotics. 6. The patient is hypoxemic. I gave her some Lasix intravenously. 7. Oral intake is poor. I started her on Clinimix. PLAN: We will do blood for type and screen. Overall prognosis is poor. No family member available to discuss. I discussed her risks of intraoperative and postoperative complications with surgeon. We decided to postpone surgery until Monday. We are going to give her some Clinimix. Monitor her lab data. I am going to repeat blood work today. cc: MD Nayan Han MD
[2016-11-20 11:09] LABS: CK INDEX 0.8 (0.0-2.5); CK-MB 2.25 ng/mL (0.0-5.0)
[2016-11-20 11:13] LABS: BASO% 0.3 % (0.0-0.8); EOS# 0.33 X1000 (0.0-0.7); EOS% 3.1 % (0.0-10.0); HEMATOCRIT 27.2 % (37.0-47.0); HEMOGLOBIN 8.2 g/dL (12.0-16.0); IMM GRAN% 0.9 % (0.0-0.5); LYMPH# 1.16 X1000 (1.2-3.4); LYMPH% 10.9 % (20.5-51.1); MCH 28.4 PG (27-31); MCHC 30.1 g/dL (33-37); MCV 94.1 FL (81-99); MONO# 1.02 X1000 (0.11-0.59); MONO% 9.6 % (1.7-9.3); MPV 10.2 FL (7.4-10.4); NEUT% 75.2 % (42.2-75.2); PLT 227 X1000 (130-400); RBC 2.89 XMIL (4.2-5.4)
[2016-11-20] MEDS: CLINIMIX E 4.25%-5% SOLUTION 1,000 ML IV SCH ×2 (11:32→23:26)
[2016-11-20] MEDS: LOVENOX SUBQ SCH (20:50)
[2016-11-20] MEDS: LIPITOR PO SCH (20:51)
[2016-11-21] MEDS: DILAUDID IV PRN ×5 (04:28→23:39)
[2016-11-21] MEDS: XOPENEX NEB INH SCH ×6 (04:30→23:51)
[2016-11-21 05:30] LABS: HEMATOCRIT 30.8 % (37.0-47.0); HEMOGLOBIN 9.7 g/dL (12.0-16.0); MCH 28.8 PG (27-31); MCHC 31.5 g/dL (33-37); MCV 91.4 FL (81-99); MPV 10.4 FL (7.4-10.4); RBC 3.37 XMIL (4.2-5.4)
[2016-11-21 05:51] LABS: ALBUMIN 2.5 g/dL (3.5-5.0); CALCIUM 9.1 mg/dL (8.8-10.2); MAGNESIUM 1.6 mg/dL (1.5-2.7); POTASSIUM 3.9 mmol/L (3.5-5.1); TOTAL BILIRUBIN 1.01 mg/dL (0.20-1.00); TOTAL PROTEIN 6.2 g/dL (6.3-8.3)
[2016-11-21] MEDS: SYNTHROID PO SCH (06:08)
[2016-11-21] MEDS: HUMALOG SUBQ SCH ×4 (06:09→21:52)
[2016-11-21] MEDS: CLINDAMYCIN 300 MG in NS 50 ML IV SCH ×2 (08:18→15:43)
[2016-11-21] MEDS: LOPRESSOR PO SCH ×2 (08:19→21:52)
[2016-11-21] MEDS: LEVAQUIN 250 MG/D5W 250 MG/50 ML IVPB IV SCH (09:08)
[2016-11-21] MEDS ORDERED: EPHEDRINE ONE (09:30)
[2016-11-21] MEDS ORDERED: SODIUM CHLORIDE 0.9% 10 ML ONE ×2 (09:30)
[2016-11-21] MEDS ORDERED: QUELICIN (DOSE) ONE (09:31)
[2016-11-21] MEDS ORDERED: FENTANYL ONE (09:32)
[2016-11-21] MEDS ORDERED: DIPRIVAN 1% ONE (10:45)
[2016-11-21] MEDS: LANOXIN PO SCH ×2 (11:13→14:19)
[2016-11-21] MEDS: COLACE PO SCH ×2 (11:13→21:55)
[2016-11-21] MEDS: MIRALAX PO SCH (11:13)
[2016-11-21] MEDS: NEURONTIN PO SCH ×2 (11:13→21:52)
[2016-11-21] MEDS: XANAX PO SCH ×2 (11:14→21:52)
[2016-11-21] MEDS ORDERED: OFIRMEV 1000 MG/ISOTONIC SOLN 1,000 MG/100 ML BOTTLE ONE (11:26)
--- NOTE | 2016-11-21 11:44 | PROGRESS NOTE ---
DATE: 11/21/2016 SUBJECTIVE: Ms Lambert is an 86-year-old female who is complaining of right hip pain after falling 7 days ago. She has been in [facility] due to medical issues which have improved. OBJECTIVE: She is a well-developed, well-nourished female. She is tender to palpation over the right hip. The right hip is slightly externally rotated and a little bit short. She is able to dorsiflex and plantar flex the toes and ankle. She has good sensation to light touch and she is neurovascularly intact with good peripheral pulses. ASSESSMENT: Right hip intertrochanteric fracture. PLAN: She is stable medically and so we will proceed with a short trochanteric fixation nail placement of the right hip which we will be doing today. Dictated by MAYDA Stoo for Ezequiel Foley MD cc: MAYDA Soto MD Jagan Reddy, MD
[2016-11-21] MEDS: MORPHINE ONE ×3 (12:30→23:19)
[2016-11-21] MEDS ORDERED: MORPHINE IV PRN (14:07)
[2016-11-21] MEDS ORDERED: HALDOL IV PRN (14:07)
[2016-11-21] MEDS ORDERED: ZOFRAN IV PRN (14:07)
[2016-11-21] MEDS ORDERED: MILK OF MAGNESIA PO PRN (14:07)
[2016-11-21] MEDS: TYLENOL PO SCH ×3 (14:19→22:12)
[2016-11-21] MEDS: CLINIMIX E 4.25%-5% SOLUTION 1,000 ML IV SCH (14:19)
[2016-11-21] MEDS: NS 1,000 ML IV SCH (15:00)
--- NOTE | 2016-11-21 16:16 | OPERATIVE NOTE ---
PROCEDURE DATE: 11/21/2016 PREOPERATIVE DIAGNOSIS: Right intertrochanteric fracture. POSTOPERATIVE DIAGNOSIS: Right intertrochanteric fracture. PROCEDURE PERFORMED: Right trochanteric femoral nailing. SURGEON: Ezequiel Foley MD TRANSPORT TECHNICIAN: MAYDA Soto ANESTHESIA: General with LMA. BLOOD LOSS: About 100 mL. IMPLANT: 11 x 360 Synthes trochanteric femoral nail. DISPOSITION: To PACU, hemodynamically stable. INDICATIONS FOR PROCEDURE: Ms. Lambert is an 86-year-old female who has been in the hospital for a week now and we just got clearance to do her surgery today for this right hip. Unfortunately, she has had a lot of medical comorbidity issues come up over the past week and those, fortunately, have been getting better. I discussed with her and her family about trochanteric femoral nailing for this right hip fracture. I went over the procedure, risks, benefits, and potential complications and they all expressed understanding and wished to proceed. DESCRIPTION OF PROCEDURE: Ms. Lambert was identified in the preoperative holding area. The right hip was marked as the correct surgical site. She was then wheeled to the operating room and placed supine on the operating table. All bony prominences were well padded. She was induced under general anesthesia. LMA was placed. Traction boots were placed on both legs and put on the traction bed. A little bit of distraction was placed along the right leg. The right lower extremity was then prepped with chlorhexidine gluconate scrub and then ChloraPrep and draped in the normal sterile fashion. A surgical pause was performed. We identified the correct patient, correct side, and the correct procedure. Preoperative antibiotics were given. We started fluoroscopic imaging, which showed that we had good reduction of our intertrochanteric fracture with just a little bit of traction on there. Both AP and lateral views showed good reduction. I then made a small incision just superior to the trochanter. Dissection was carried down to the deep fascia. I then got my guidewire in good position and then overdrilled it. I then got my long guidewire in down to the knee just above the patella, and it was measured right at 360. I then sequentially reamed up to a size 12 reamer and it was a little bit tight. It was not a stove pipe type femur. I then placed an 11 x 360 Synthes nail and had good fit in the canal. Once we got that in place, I then drilled my guidewire for my blade up into the femoral head, center- center, and then overdrilled that and then placed a helical blade, which was size 90. I got it into place and then locked it proximally.. The size [address] and then locked it proximally with our outrigger construct was then removed and fluoroscopic imaging showed that we had very good reduction of our fracture and good position of our hardware. AP image of the knee as well showed that the koffi was in good position lengthwise. I elected not to put in a distal interlocking screws because I felt we had a really good fit and that the fracture was stable after locking the blade in. I then irrigated everything copiously with normal saline. 0 Vicryl was used to close the deep layer, 2-0 Vicryl for the subcu, and lola on the skin. Adaptic, 4 x 4's, and an island dressing was placed. The patient was then taken off the traction bed, moved to her own bed, and taken to the PACU in stable condition. Postoperatively, the patient will be weightbearing as tolerated on the right lower extremity. She will start therapy tomorrow and I am okay with her getting up and moving. cc: MD Nayan Leal MD
[2016-11-21] MEDS: ZOFRAN IV PRN ×2 (19:46→23:39)
[2016-11-21] MEDS: LIPITOR PO SCH (21:52)
--- NOTE | 2016-11-21 22:14 | PROGRESS NOTE ---
DATE: 11/21/2016 SUBJECT: Events were noted over the weekend. Patient continues to improve. PSVT is better. Dr. Foley was seen over the weekend scheduled for hip nailing on the right side. REVIEW OF SYSTEMS: Lungs: Decreased shortness of breath, chest pain. GI: Slightly nausea. No vomiting. No altered bowel habits. No bleeding per rectum. : Has a Suh catheter. Pain in the right hip. Neuro: No obvious neurological symptoms or weakness. PHYSICAL EXAMINATION: Vital signs: Afebrile, temperature is 98 degrees, blood pressure 103/52, 6 L nasal cannula 93%. I's and O's are negative -2.4. HEENT: Within normal limits. Neck: Supple. Chest: Decreased rhonchi on the left side. Heart: Sounds are regular. Belly: Soft, obese, nontender. Good bowel sounds. Extremities: No peripheral edema, cyanosis. Right hip was dislocated. INVESTIGATIONS: CBC. White cell count 14, hematocrit 30, platelets 281,000. SMA 7 sodium 142, potassium 3.9, BUN 31, creatinine 1.2, glucose 180, LFTs were normal. Chest x-ray stable. ASSESSMENT AND PLAN: 1. Right hip fracture waiting for hip replacement. 2. Paroxysmal atrial fibrillation currently sinus. 3. Peripherally inserted central catheter line on the right side placed. 4. Acute kidney injury improved. 5. Hyperkalemia has been improved. 6. Protein calorie malnutrition. IV PPN. 7. Aspiration pneumonia on clindamycin and Levaquin. 8. Deep venous thrombosis prophylaxis with Lovenox. 9. Gastrointestinal prophylaxis with IV Protonix. 10. Paroxysmal supraventricular tachycardia on Lopressor. 11. Hypothyroidism on Synthroid. Will follow up after surgery, will repeat the labs in the morning. LEVEL OF DOCUMENTATION: 35 minutes. cc: Nayan Jeffries MD
[2016-11-21] MEDS: PROTONIX IV SCH (23:39)
[2016-11-22] MEDS: CLINDAMYCIN 300 MG in NS 50 ML IV SCH ×4 (00:15→23:10)
[2016-11-22] MEDS: CLINIMIX E 4.25%-5% SOLUTION 1,000 ML IV SCH ×2 (02:17→15:18)
[2016-11-22] MEDS: NS 1,000 ML IV SCH (02:17)
[2016-11-22] MEDS: ZOFRAN IV PRN (03:35)
[2016-11-22] MEDS: XOPENEX NEB INH SCH ×5 (03:45→23:40)
[2016-11-22 05:24] LABS: HEMATOCRIT 27.1 % (37.0-47.0); HEMOGLOBIN 8.4 g/dL (12.0-16.0)
[2016-11-22 06:07] LABS: CALCIUM 8.5 mg/dL (8.8-10.2); POTASSIUM 4.3 mmol/L (3.5-5.1)
[2016-11-22] MEDS: SYNTHROID PO SCH (06:19)
[2016-11-22] MEDS: LOVENOX SUBQ SCH (06:20)
[2016-11-22] MEDS: HUMALOG SUBQ SCH ×4 (06:20→21:37)
[2016-11-22] MEDS: TYLENOL PO SCH ×4 (06:20→21:39)
[2016-11-22] MEDS ORDERED: INJECTAFER IV ONE (07:52)
--- NOTE | 2016-11-22 08:15 | PROGRESS NOTE ---
DATE: 11/22/2016 SUBJECTIVE DATA: Ms. Lambert is currently lying in bed, in no acute distress. She states overall she is feeling better. She states she is still having some pain in the hip but it is better then prior to surgery. OBJECTIVE DATA: Right Lower Extremity Examination: She is bottom steep tender to palpation over the incision at the right hip. The dressing is clean, dry, and intact. There is no drainage. She is able to dorsiflex and plantarflex at the ankle. She is able to move all the toes. She has good sensation to light touch. She has a 2+ pedal pulse. She is able to raise the leg. ASSESSMENT: Status post right trochanteric femoral nailing. PLAN: Ms. Lambert can start weightbearing today. She is able to bear full weight on the leg. We have encouraged her to start working with physical therapy and really start moving. The best thing for her at this point is to be up and moving. Her medical management is still being looked after by Dr. Jeffries. From our standpoint, whenever she is medically ready, we can get her to a rehab facility. Dictated by YOHANNES Win for Ezequiel Foley MD cc: YOHANNES Win MD Jagan Reddy, MD
--- NOTE | 2016-11-22 08:54 | PROGRESS NOTE ---
DATE: 11/22/2016 SUBJECTIVE: The patient had right hip surgery done yesterday. Patient is doing very well. Complains of intermittent confusion and pain. Decrease in nausea. REVIEW OF SYSTEMS: Rest of the review of systems was normal. PHYSICAL EXAMINATION: Vital Signs: Afebrile. Vitals are stable, 88% on 5 L. HEENT Examination: Decreased rhonchi on the left side. Heart: Distant heart sounds. Abdomen: Belly is soft. Incisional hernia present. Extremities: No peripheral edema. Neurological: No obvious neurological deficits. INVESTIGATIONS: Hematocrit was 27. SMA 7: Sodium 144, potassium 4.3, BUN 34, creatinine 1.2, glucose 172. LFTs were normal. ASSESSMENT AND PLAN: 1. Postoperative day 1 right hip nailing, doing very well. 2. Left lower lobe aspiration pneumonia, on clindamycin and Levaquin. 3. Hypothyroidism, on Synthroid. 4. Anemia with restless leg syndrome. We will give iron infusion. 5. Azotemia, hyperkalemia, resolved. 6. Advanced the diet, decreased intravenous fluids, continued on intravenous peripheral parenteral nutrition. 7. Out of the bed with physical therapy. 8. Discussed the plan of care with the patient's caregiver. 9. Level of documentation, 25 minutes. cc: Nayan Jeffries MD
[2016-11-22] MEDS ORDERED: INJECTAFER 750 MG in NS 250 ML IV ONE (09:00)
[2016-11-22] MEDS: DILAUDID IV PRN ×3 (09:26→21:57)
[2016-11-22] MEDS: LEVAQUIN 250 MG/D5W 250 MG/50 ML IVPB IV SCH (09:26)
[2016-11-22] MEDS: LOPRESSOR PO SCH ×2 (09:26→21:34)
[2016-11-22] MEDS: MIRALAX PO SCH (09:26)
[2016-11-22] MEDS: NEURONTIN PO SCH ×2 (09:26→21:33)
[2016-11-22] MEDS: XANAX PO SCH ×2 (09:26→21:34)
[2016-11-22] MEDS: LANOXIN PO SCH (09:27)
[2016-11-22] MEDS: FERROUS SULFATE PO SCH (09:28)
[2016-11-22] MEDS: COLACE PO SCH (21:33)
[2016-11-22] MEDS: LIPITOR PO SCH (21:34)
[2016-11-22] MEDS: PROTONIX IV SCH (23:10)
[2016-11-23] MEDS: XOPENEX NEB INH SCH ×7 (01:02→23:02)
[2016-11-23] MEDS: ZOFRAN IV PRN ×4 (03:11→21:30)
[2016-11-23] MEDS: DILAUDID IV PRN ×4 (03:11→21:29)
[2016-11-23] MEDS: CLINIMIX E 4.25%-5% SOLUTION 1,000 ML IV SCH ×2 (04:41→16:12)
[2016-11-23 05:53] LABS: HEMATOCRIT 27.9 % (37.0-47.0); HEMOGLOBIN 8.7 g/dL (12.0-16.0)
[2016-11-23] MEDS: HUMALOG SUBQ SCH ×4 (06:12→21:29)
[2016-11-23] MEDS: LOVENOX SUBQ SCH (06:12)
[2016-11-23] MEDS: SYNTHROID PO SCH (06:12)
[2016-11-23] MEDS: TYLENOL PO SCH ×3 (06:13→23:46)
--- NOTE | 2016-11-23 08:04 | PROGRESS NOTE ---
DATE: 11/23/2016 SUBJECTIVE DATA: Ms. Lambert is currently resting comfortably in bed. She is in no acute distress. She states overall she feels well today. She states she is feeling better than she has in a while. OBJECTIVE DATA: Right lower extremity exam: She is flaker tender to palpation over the incision of the right hip. The dressing is clean, dry, and intact. There is no drainage. She is able to move all her toes. She is able to raise the leg. She is able to dorsiflex and plantar flex the ankle. She has good sensation to light touch. She has a 2+ pedal pulse. She did get up with physical therapy yesterday. ASSESSMENT: Status post right trochanteric femoral nailing PLAN: We will continue Ms. Lambert weightbearing with physical therapy. Again, she is able to be full weightbearing. The best thing for her to do is to continue working with physical therapy and getting up and start moving. Whenever she is medically ready, we are comfortable with her going to the rehab facility and continuing to work on physical therapy. She will follow up with Dr. Foley in clinic. Dictated by YOHANNES Win for Ezequiel Foley MD cc: YOHANNES Win MD Jagan Reddy, MD [facility]ERS[facility]
[2016-11-23] MEDS: CLINDAMYCIN 300 MG in NS 50 ML IV SCH ×2 (08:10→16:12)
[2016-11-23] MEDS: LOPRESSOR PO SCH ×2 (08:10→21:28)
[2016-11-23] MEDS: MIRALAX PO SCH (08:10)
[2016-11-23] MEDS: NEURONTIN PO SCH ×3 (08:10→23:46)
[2016-11-23] MEDS: XANAX PO SCH ×2 (08:11→21:28)
[2016-11-23] MEDS: FERROUS SULFATE PO SCH (08:11)
[2016-11-23] MEDS: LANOXIN PO SCH (08:11)
--- NOTE | 2016-11-23 08:42 | PROGRESS NOTE ---
DATE: 11/23/2016 SUBJECTIVE: Patient is doing very well. Intermittent confusion. Tolerating the diet very well. No nausea, vomiting, obstipation. REVIEW OF SYSTEMS: None reported. PHYSICAL EXAMINATION: Vital Signs: She is afebrile. Vitals are stable. Blood pressure is 155/59. Nasal cannula 94%. HEENT Exam: Within normal limits. Neck: Supple. Chest: Bilateral air entry. Abdomen: Belly is soft, with ventral hernia noted. Extremities: No peripheral edema. LABS: Hematocrit is 27.9. ASSESSMENT AND PLAN: 1. Postop day 3, right hip fracture. Doing very well. 2. Paroxysmal supraventricular tachycardia atrial fibrillation, stable. 3. Aspiration pneumonia on IV antibiotics and continue IV PPN. 4. Repeat the labs in the morning as well as chest x-ray. 5. Out of the bed with physical therapy and discussed with Dr. Foley and hopefully will go to rehab on Monday. LEVEL OF DOCUMENTATION: 15 minutes. cc: Nayan Jeffries MD
[2016-11-23] MEDS: LEVAQUIN 250 MG/D5W 250 MG/50 ML IVPB IV SCH (08:46)
[2016-11-23] MEDS: LIPITOR PO SCH (21:28)
[2016-11-23] MEDS: COLACE PO SCH (21:28)
[2016-11-24] MEDS: CLINDAMYCIN 300 MG in NS 50 ML IV SCH ×4 (00:11→23:26)
[2016-11-24] MEDS: ZOFRAN IV PRN ×4 (02:28→22:03)
[2016-11-24] MEDS: XOPENEX NEB INH SCH ×6 (03:31→22:34)
[2016-11-24] MEDS: DILAUDID IV PRN ×3 (03:56→22:01)
[2016-11-24 05:21] LABS: MANUAL DIFF NEEDED? NO
[2016-11-24] MEDS: HUMALOG SUBQ SCH ×5 (05:45→20:38)
[2016-11-24] MEDS: LOVENOX SUBQ SCH (05:45)
[2016-11-24] MEDS: SYNTHROID PO SCH ×2 (05:45→06:45)
[2016-11-24] MEDS: PROTONIX IV SCH (05:45)
[2016-11-24] MEDS ORDERED: BLISTEX MEDICATED BERRY LIP BALM TOP PRN (05:46)
[2016-11-24] MEDS: TYLENOL PO SCH ×3 (05:47→23:26)
[2016-11-24 05:49] LABS: CALCIUM 8.2 mg/dL (8.8-10.2)
[2016-11-24 05:51] LABS: BASO% 0.2 % (0.0-0.8); EOS# 0.39 X1000 (0.0-0.7); EOS% 3.6 % (0.0-10.0); HEMATOCRIT 26.1 % (37.0-47.0); HEMOGLOBIN 8.1 g/dL (12.0-16.0); IMM GRAN# 0.24 X1000 (0.0-0.04); IMM GRAN% 2.2 % (0.0-0.5); LYMPH# 1.33 X1000 (1.2-3.4); LYMPH% 12.1 % (20.5-51.1); MCH 28.1 PG (27-31); MCV 90.6 FL (81-99); MONO# 1.06 X1000 (0.11-0.59); MONO% 9.7 % (1.7-9.3); MPV 10.4 FL (7.4-10.4); NEUT% 72.2 % (42.2-75.2); PLT 304 X1000 (130-400); RBC 2.88 XMIL (4.2-5.4)
[2016-11-24] MEDS: CLINIMIX E 4.25%-5% SOLUTION 1,000 ML IV SCH ×3 (05:54→08:17)
--- NOTE | 2016-11-24 07:06 | PROGRESS NOTE ---
DATE: 11/24/2016 SUBJECTIVE: Ms. Lambert is lying in bed this morning on nasal cannula. She seems to be okay this morning, not really complaining of a lot of pain in the hip. OBJECTIVE: Right lower extremity exam: Dressings are clean, dry, and intact. She is able to move the toes very well. ASSESSMENT: Status post right trochanteric femoral nailing for hip fracture. PLAN: I think Ms. Lambert is doing well. She is still up in [facility] at this time from a medical standpoint. I am okay with her being weightbearing as tolerated, right lower extremity. She will continue to work with therapy as well. cc: MD Nayan Leal MD
[2016-11-24] MEDS: MIRALAX PO SCH ×2 (08:18→08:23)
[2016-11-24] MEDS: FERROUS SULFATE PO SCH (08:19)
[2016-11-24] MEDS: LOPRESSOR PO SCH ×2 (08:20→20:38)
[2016-11-24] MEDS: OXY IR PO PRN ×3 (08:20→17:45)
[2016-11-24] MEDS: LANOXIN PO SCH (08:20)
[2016-11-24] MEDS: XANAX PO SCH ×2 (08:21→20:38)
[2016-11-24] MEDS: NEURONTIN PO SCH ×2 (08:21→20:38)
--- NOTE | 2016-11-24 08:48 | PROGRESS NOTE ---
DATE: 11/24/2016 SUBJECTIVE: The patient is doing very well, eating. No complains other than knee pains. REVIEW OF SYSTEMS: No chest pain, shortness of breath. REVIEW OF SYSTEMS: None reported. PHYSICAL EXAMINATION: Vital Signs: Afebrile. Vitals are stable. I Os positive 400. HEENT Examination: Within normal limits. Chest: Decreased rhonchi on the left side. Abdomen: Belly is soft, with incisional hernia. Extremities: No peripheral edema. Genitourinary: Suh catheter was seen. Neurological Examination: No obvious neurological deficits. INVESTIGATIONS: CBC: White cell count 10, hematocrit 26, platelets 304,000. SMA-7 is normal. BUN 30, creatinine 0.9, glucose 175. ASSESSMENT AND PLAN: 1. Status post right hip fracture repair, stable. 2. Aspiration pneumonia. Clindamycin and Levaquin. 3. Azotemia, improving. Decrease the IV PPN. 4. Paroxysmal atrial fibrillation. On Lanoxin. Continue with deep venous thrombosis prophylaxis with Lovenox. LIVING WILL: Do not resuscitate. PLAN OF CARE: Will be ready for discharge in the morning, for care home. LEVEL OF DOCUMENTATION: Was 25 minutes. cc: Nayan Jeffries MD
[2016-11-24] MEDS: LEVAQUIN 250 MG/D5W 250 MG/50 ML IVPB IV SCH (09:58)
--- NOTE | 2016-11-24 12:19 | Diag Imaging Result Doc PS360 ---
EXAM: CHEST-2 VIEWS HISTORY: hypoxia TECHNIQUE: AP and lateral chest COMMENT: There is a PICC line with its tip in this. Vena cava. There is a small amount of pleural fluid bilaterally. There is apparent atelectasis in the left lower lobe which has improved slightly since 11/19/2016. There may be COPD. IMPRESSION: Left lower lobe atelectasis versus pneumonia. Electronically signed by Elie Dominguez 11/24/2016 12:17 PM
[2016-11-24] MEDS: COLACE PO SCH (20:38)
[2016-11-24] MEDS: LIPITOR PO SCH (20:38)
[2016-11-25] MEDS: XOPENEX NEB INH SCH ×2 (03:11→07:52)
[2016-11-25] MEDS: DILAUDID IV PRN (05:04)
[2016-11-25] MEDS: ZOFRAN IV PRN (05:05)
[2016-11-25] MEDS: CLINIMIX E 4.25%-5% SOLUTION 1,000 ML IV SCH (05:06)
[2016-11-25] MEDS: TYLENOL PO SCH (05:15)
[2016-11-25] MEDS: SYNTHROID PO SCH (06:05)
[2016-11-25] MEDS: HUMALOG SUBQ SCH (06:06)
[2016-11-25] MEDS: PROTONIX IV SCH (06:06)
[2016-11-25] MEDS: LOVENOX SUBQ SCH (06:06)
--- NOTE | 2016-11-25 08:29 | DISCHARGE SUMMARY ---
ADMISSION DATE: 11/14/2016 DISCHARGE DATE: 11/25/2016 DISCHARGING DIAGNOSIS: Right hip fracture. SECONDARY DIAGNOSES: 1. Paroxysmal atrial fibrillation with congestive heart failure. 2. Chronic systolic heart failure; ejection fraction 30%. 3. Chronic obstructive pulmonary disease. 4. Left lower lobe aspiration pneumonia. 5. Type 2 diabetes. 6. Hypertension. 7. Hypothyroid. 8. Acid reflux disease. 9. Peripheral vascular disease in both legs. 10. Depression. 11. Hyperkalemia, resolved. 12. Acute kidney failure, resolved. CONSULTS: Ezequiel Foley MD PROCEDURES: 1. Right hip nailing 2. PICC line on the right side. BRIEF HISTORY: Please see the H and P that was done on the day of admission. In brief, she is an 86-year-old white female, under the hospice care [facility] after she fell at home with sustained injury to the right hip. As a result, a hospital admission was warranted. During the hospital, she developed 1st of 3 days with significant complications which includes: 1. Acute kidney injury due to hypovolemia requiring IV fluids. 2. Hyperkalemia requiring calcium gluconate followed by Kayexalate. 3. Nausea and vomiting with aspiration pneumonia in the left lower lobe requiring Levaquin and clindamycin. 4. Atrial fibrillation with rapid ventricular response. Transferred to the [facility]. Started on IV digoxin and beta blockers. At that time, her situation was very grim. Family decided on comfort measures. She was given IV antibiotics, IV PPN, and subsequently her symptoms were much improved. She got better in terms of hyperkalemia, azotemia and atrial fibrillation, as well as aspiration pneumonia in the left lower lobe. She had a poor IV access. PICC line was placed on the right side. After she was medically stable, patient had hip nailing done by Dr. Foley. Postoperative course was uneventful. She is able to get out of the bed. Sitting in the chair. The patient has been transferred to the rehab for convalescence. Postoperatively she also developed anemia requiring a unit of blood as well as iron infusion. Suh was discontinued. Prior to the discharge. LABORATORIES: At the time of discharge, as follows: CBC white cell count 10, hematocrit 26, platelet count 304,000. SMA 7: Sodium 138, potassium 4.0, chloride 100, BUN 30 , creatinine 0.9, glucose 168, calcium 8.2. LFTs were normal. DISCHARGE INSTRUCTIONS: 1. Care of the skin, bladder, and bowels. 2. Discontinue Suh. 3. Oxygen 2 L. 4. Physical therapy. 5. Albuterol and Atrovent nebulizers q.6 hours as needed. Xanax 0.25 at bedtime. Eliquis 5 mg daily, which will cover for stroke prevention as well as DVT prophylaxis. Lipitor 40 mg daily, Pletal 50 daily, digoxin 125 mcg daily, Colace 100 p.o. b.i.d., gabapentin 100 p.o. b.i.d., glipizide 5 mg daily, Icar C Plus 1 tablet daily, Levaquin 500 daily , Synthroid 50 mcg daily, Cozaar 50 daily, metoprolol 25 daily, Prilosec 20 daily, Zofran 4 mg q. 6 hours as needed for nausea, Januvia 100 daily, Aldactone 25 daily, Zanaflex 4 mg q.8 as needed, tramadol 100 ER 1 daily, Desyrel 50 at bedtime. 6. Follow up with Dr. Foley in 10 days. Follow up with my office 2 weeks. 7. Living will, DNR. cc: Nayan Jeffries MD [facility]
[2016-11-25 08:35] VITALS: BP 137/53
[2016-11-25] MEDS ORDERED: LANOXIN ONE (08:39)
[2016-11-25] MEDS ORDERED: LOPRESSOR ONE (08:39)
[2016-11-25] MEDS: CLINDAMYCIN 300 MG in NS 50 ML IV SCH (08:42)
[2016-11-25] MEDS: FERROUS SULFATE PO SCH (08:43)
[2016-11-25] MEDS: NEURONTIN PO SCH (08:43)
[2016-11-25] MEDS: MIRALAX PO SCH (08:44)
[2016-11-25] MEDS: LANOXIN PO SCH (08:51)
[2016-11-25] MEDS: LOPRESSOR PO SCH (09:00)
[2016-11-25] MEDS: XANAX PO SCH (09:00)
[2016-11-25] MEDS: LEVAQUIN 250 MG/D5W 250 MG/50 ML IVPB IV SCH (09:00)
[2016-11-25] MEDS: OXY IR PO PRN (11:34)
== END 2016-11-25 11:40 ==
LOC: ED 14:50 → 4N 17:49 → 3S 11-17 12:52
PROVIDERS: ADMIT Internal Medicine; ATTEND Internal Medicine